=== PATIENT | female | born 1965 | race Caucasian/White ===

== ENCOUNTER 2018-03-25 15:30 | Inpatient (IN) | payer BC ==
[~2018-03-25] VITALS: Ht 170.2 cm; Wt 68.2 kg
[2018-04-23] VITALS (11 sets, daily range): BP systolic 90–119; BP diastolic 41–69; PULSE 52–78; TEMP 97–98.3
[2018-04-23] MEDS ORDERED: MOTRIN 800800 MG/TAB PO (10:26)
[2018-04-23] MEDS ORDERED: PERCOCET 325 MG1 TA2 PO (10:26)
[2018-04-24 02:50] VITALS: BP 95/57; PULSE 67; TEMP 97.5
[2018-04-24 08:30] VITALS: BP 105/59; PULSE 66; TEMP 97.5
== END 2018-04-24 14:00 | disposition home or self-care (01) | DRG 743 ==
LOC: EDSTATUS 04-23 07:30 → SURG 04-23 07:30 → SDCO 04-23 07:30 → OB 04-23 09:02 → SDCO 04-23 11:00 → SURG 04-23 11:00 → OB 04-24 14:00
PROVIDERS: Obstetrics & Gynecology
PROC: 0USGXZZ Reposition Vagina, External Approach (ICD-10-PCS; 2018-04-23)
PROC: 8E0W4CZ Robotic Assisted Procedure of Trunk Region, Percutaneous Endoscopic Approach (ICD-10-PCS; 2018-04-23)
PROC: 0HQ9XZZ Repair Perineum Skin, External Approach (ICD-10-PCS; 2018-04-23)
PROC: 0UT9FZZ Resection of Uterus, Via Natural or Artificial Opening With Percutaneous Endoscopic Assistance (ICD-10-PCS; principal; 2018-04-23 11:00)
PROC: 0UT7FZZ Resection of Bilateral Fallopian Tubes, Via Natural or Artificial Opening With Percutaneous Endoscopic Assistance (ICD-10-PCS; 2018-04-23 11:00)
PROC: 0JQC0ZZ Repair Pelvic Region Subcutaneous Tissue and Fascia, Open Approach (ICD-10-PCS; 2018-04-23 11:00)
PROC: 0UQF0ZZ Repair Cul-de-sac, Open Approach (ICD-10-PCS; 2018-04-23 11:00)
DX: N81.4 Uterovaginal prolapse, unspecified (principal); N81.6 Rectocele
CPT/HCPCS: A4314; C2631; J0690; J1100; J1170; J1885; J2250; J2270; J2405; J2704; J2710; J3010; J7120